=== PATIENT | male | born 1985 | race Two or more races ===

== ENCOUNTER 2017-10-11 11:18 | Emergency (ER) | payer OTHER ==
[~2017-10-11] VITALS: Ht 175.3 cm; Wt 108.9 kg
[2017-10-11] MEDS ORDERED: LORazepam 0.5 MG TAB ONE (11:35)
[2017-10-11 11:40] VITALS: BP 144/98
[2017-10-11] MEDS ORDERED: LORazepam 0.5 MG TAB PO ONE (11:45)
== END 2017-10-11 13:20 | disposition home or self-care (01) ==
LOC: ER 11:18
DX: S46.912A Strain of unspecified muscle, fascia and tendon at shoulder and upper arm level, left arm, initial encounter (principal); F31.9 Bipolar disorder, unspecified; F20.9 Schizophrenia, unspecified; R51 Headache; V43.62XA Car passenger injured in collision with other type car in traffic accident, initial encounter; Y93.89 Activity, other specified; Y92.89 Other specified places as the place of occurrence of the external cause; Y99.8 Other external cause status
CPT/HCPCS: 70450; 73030; 73060; 74176